=== PATIENT | male | born 1965 | race Caucasian/White ===

== ENCOUNTER 2024-08-27 15:43 | Observation (INO) ==
[2024-08-27 16:05] LABS: Hematocrit (blood only) 40.2 % (42.0-52.0); Hemoglobin 14.1 g/dl (14.0-18.0); Immature Granulocytes # (auto) 0.03 K/uL (0.01-0.20); Immature Granulocytes % (auto) 0.5 %; Mean Corpuscular Hemoglobin 32.2 pg (25.0-34.0); Mean Corpuscular Volume 91.8 fL (80.0-100.0); Platelet Count 221 K/uL (130-400); RDW Standard Deviation 42.3 fL (36.4-46.3); Red Blood Count 4.38 M/uL (4.70-6.10); White Blood Count 6.46 K/ul (4.8-10.8)
[2024-08-27 16:21] LABS: Alanine Aminotransferase 61.0 U/L (7-52); Albumin Globulin Ratio 1.6 (0.9-2); Alkaline Phosphatase 70.0 U/L (34-104); Anion Gap 6.0 (3-11); Bilirubin,Total 0.5 mg/dl (0.2-1.0); Blood Urea Nitrogen 17.0 mg/dl (6-23); Calcium 8.8 mg/dl (8.6-10.3); Carbon Dioxide 27.0 mmol/L (21-32); Chloride 107.0 mmol/L (98-107); Creatinine Clr Calc Pharmacy 93.8 ml/min; Globulin 2.7 gm/dl (2.5-4.0); Glucose 110.0 mg/dl (70-99(Fasting)); Potassium 3.8 mmol/L (3.5-5.1); Sodium 140.0 mmol/L (136-145); Total Protein 7.0 gm/dl (6.0-8.3)
[2024-08-27 16:34] LABS: INR 1.0 (0.9-1.1); Partial Thromboplastin Time 27 Seconds (21-31); Prothrombin Time 11.3 Seconds (9.0-12.0)
--- NOTE | 2024-08-27 17:18 | XRay Report ---
Clinical History: Chest pain Technique: Air frontal view of the chest was obtained Findings: No focal area of consolidation is seen. The heart size is within normal limits. No pleural effusion or pneumothorax is seen. There is suspected mild pulmonary edema No fracture is noted. No foreign body is seen Impression: Suspected mild pulmonary edema ACT 112: Positive. There are findings on this exam that require communication between the performing entity and the patient following Patient Test Result Information Act ([place] ACT 112) guidelines. Electronically signed by Zachary Engel 08-27-2024 5:18 PM
--- NOTE | 2024-08-27 18:39 | Emergency Department Note ---
Impression & Plan Precordial chest pain, Unstable angina, History of coronary artery disease ED Provider Note NAME: EUGENIO RAND AGE: 59 SEX: M : 1965 ARRIVES VIA: Walk-In INFORMANT: [Patient][] ED PROVIDER(S): [Jarad Parr MD] CHIEF COMPLAINT: Chest pain HISTORY OF PRESENT ILLNESS: The patient is a 59-year-old male who has known coronary disease. 2 years ago, he was diagnosed and, they are monitoring the situation. He also has a thoracic aneurysm and a valve issue that they are monitoring. The patient states that in the last month, he has noticed a burning sensation in his chest with exercise like shoveling. He does feel short of breath with it. If he rests, the pain resolves. The number of episodes have been increasing. No sweating with the symptoms. The patient spoke with his doctors office, he was referred to the ER. The patient already is on aspirin, cholesterol medication, beta-blockers and long-acting nitrates. PMHx/PSHx/Social Hx: See Below PHYSICAL EXAM: GENERAL: Patient is in no acute distress. HEENT: No acute trauma, normocephalic atraumatic, mucous membranes moist, no nasal congestion. NECK: No stridor, no adenopathy, no meningismus, trachea is midline. LUNGS: Clear to auscultation bilaterally, no wheeze, no rhonchi, breath sounds equal. HEART: 2/6 systolic murmur, regular rate and rhythm. ABDOMEN: Soft, nontender, no peritonitis. EXTREMITIES: No cyanosis, full range of motion of all the joints without pain or difficulty. NEUROLOGIC: Oriented x 3, no acute motor or sensory deficits, no focal weakness. SKIN: No jaundice, no diaphoresis. DIFFERENTIAL DIAGNOSIS: Angina, unstable angina, WI, reflux, among others. EMERGENCY DEPARTMENT PROCEDURES: MEDICAL DECISION MAKING: There is no leukocytosis or concerning anemia. There is a normal platelet count. No coagulopathy. No renal failure or significant electrolyte abnormality. There is some subtle liver enzyme elevation, although, the bilirubin is normal. The patient appears to be in euthyroid state. ECG shows a sinus rhythm, no obvious ST elevation. Cardiac enzyme testing x 1 is not consistent with acute cardiac injury. Chest x-ray does not show mediastinal widening, pneumonia or pneumothorax. On exam, patient was without complaints, he was resting comfortably. I discussed the patient's case with cardiology. Given the escalation of exertional symptoms in the last month, given his history of known coronary artery disease, admission was warranted. He likely has unstable angina. He may require coronary intervention. I did speak with the patient, he did consent to a hospital stay. I spoke with case management, the on-call hospitalist was consulted. Prior/Outside records/notes reviewed: None ECG per my interpretation: Indication was chest pain. The ECG shows a normal sinus rhythm with a rate of 70. 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 There is poor R wave progression. There is no acute ST elevation, no PVCs. The QTc is 408. Continuous Cardiac Monitoring per my interpretation: An order was placed for continuous cardiac monitoring. The monitor shows a rate of 71 with normal sinus rhythm. Imaging/x-ray results per my interpretation: Chest x-ray shows a poor inspiratory effort. There is no pneumonia. No cardiomegaly. Chronic Medical/Social conditions affecting care: Known coronary artery disease. Care/Management discussed with: Cardiology-Dr. Gutierres Level of care consideration(s): After review of the information above and other included data: --I believe the patient requires escalation of care to admission DISPOSITION: Admission Past Med/Surg History Problem List (Updated 08/28/24 @ 02:16 by Jarad Parr MD) History of coronary artery disease (Acute) Unstable angina (Acute) Precordial chest pain (Acute) Medical History CAD (coronary atherosclerotic disease) Social History Smoking Status: Former smoker Tobacco Type: Smokeless Tobacco (Dip or Chew) Do You Dip or Chew Tobacco: Yes; Hx Alcohol Use: Yes Alcohol type: beer Hx Substance Use: No Preferred Language: Tongan Waitstaff Required: No Beliefs That Will Affect Care: None Current Living Situation: Spouse Feels Safe at Home: Yes Assistive Devices: None Allergies Allergies Allergy/AdvReac Type Severity Reaction Status Date / Time No Known Allergies Allergy Mild Unverified 08/27/24 19:27 Home Meds Home Medications Medication Instructions Recorded Confirmed ascorbic acid (vitamin C) 1,000 mg 1,000 mg PO BID 08/27/24 08/27/24 tablet (Vitamin C) aspirin 81 mg tablet,delayed 81 mg PO DAILY 08/27/24 08/27/24 release atorvastatin 80 mg tablet 80 mg PO HS 08/27/24 08/27/24 cholecalciferol (vitamin D3) 125 125 mcg PO DAILY 08/27/24 08/27/24 mcg (5,000 unit) tablet (Vitamin D3) fenofibrate nanocrystallized 145 145 mg PO DAILY 08/27/24 08/27/24 mg tablet isosorbide mononitrate 30 mg 30 mg PO DAILY 08/27/24 08/27/24 tablet,extended release 24 hr metoprolol succinate 25 mg 12.5 mg PO HS 08/27/24 08/27/24 tablet,extended release 24 hr omega 7-orr-xmw-fish oil 1,000 mg 1 cap PO BID 08/27/24 08/27/24 (120 mg-180 mg) capsule (Fish Oil) tamsulosin 0.4 mg capsule 0.4 mg PO DAILY 08/27/24 08/27/24 vitamin B complex 1 tab PO DAILY 08/27/24 08/27/24 Results & Data (ED) Vital Signs Vital Signs - 24 hr 08/27/24 15:44 08/27/24 18:47 08/27/24 18:47 Temperature 36.6 C Temperature Source Temporal Artery Scan Pulse Rate 71 Pulse Rate [Apical] 59 L Pulse Rate from SpO2 Sensor Respiratory Rate 18 22 Respiratory Effort / Characteristics Non-Labored Spontaneous Respiratory Depth Normal Blood Pressure 141/81 H Blood Pressure [Right Arm] 134/89 Blood Pressure Mean 101 Blood Pressure Mean [Right Arm] 104 Pulse Oximetry 99 96 96 Oxygen Delivery Method Room Air Room Air Sepsis Recent Fever Within 48 Hours No Sepsis New/Unexplained Change in Mental Status N/A Sepsis Action Taken by Nursing No Action Required 08/27/24 19:13 08/27/24 19:30 Temperature Temperature Source Pulse Rate 58 L 59 L Pulse Rate [Apical] Pulse Rate from SpO2 Sensor 58 L Respiratory Rate 22 24 Respiratory Effort / Characteristics Respiratory Depth Blood Pressure 151/101 H 146/98 H Blood Pressure [Right Arm] Blood Pressure Mean 114 114 Blood Pressure Mean [Right Arm] Pulse Oximetry 97 97 Oxygen Delivery Method Sepsis Recent Fever Within 48 Hours Sepsis New/Unexplained Change in Mental Status Sepsis Action Taken by Correction Medications Current Medication List: was personally reviewed by me Laboratory Data Attestation: I reviewed the patient's lab results. 08/27/24 15:53 08/27/24 15:53 Lab Results 08/27/24 Range/Units 15:53 WBC 6.46 (4.8-10.8) K/ul RBC 4.38 L (4.70-6.10) M/uL Hgb 14.1 (14.0-18.0) g/dl Hct 40.2 L (42.0-52.0) % MCV 91.8 (80.0-100.0) fL MCH 32.2 (25.0-34.0) pg MCHC 35.1 (32.0-36.0) g/dL RDW Std Deviation 42.3 (36.4-46.3) fL RDW Coeff of Osiel 12.6 (11.5-14.5) % Plt Count 221 (130-400) K/uL MPV 9.4 (9.4-12.4) fL Immature Gran % (Auto) 0.5 % Neut % (Auto) 45.4 % Lymph % (Auto) 40.9 % Bennett % (Auto) 10.2 % Eos % (Auto) 2.2 % Baso % (Auto) 0.8 % Neut # (Auto) 2.94 (1.40-6.50) K/uL Lymph # (Auto) 2.64 (1.20-3.40) K/uL Bennett # (Auto) 0.66 H (0.11-0.59) K/uL Eos # (Auto) 0.14 (0.00-0.50) K/uL Baso # (Auto) 0.05 (0.00-0.20) K/uL Immature Gran # (Auto) 0.03 (0.01-0.20) K/uL PT 11.3 (9.0-12.0) Seconds INR 1.0 (0.9-1.1) APTT 27 (21-31) Seconds PTT Ratio 1.0 Sodium 140 (136-145) mmol/L Potassium 3.8 (3.5-5.1) mmol/L Chloride 107 (98-107) mmol/L Carbon Dioxide 27 (21-32) mmol/L Anion Gap 6 (3-11) BUN 17 (6-23) mg/dl Creatinine 1.00 (0.6-1.4) mg/dl Est Cr Clr Drug Dosing 93.8 ml/min eGFR 87.78 BUN/Creatinine Ratio 17.0 (10-20) Glucose 110 H (70-99(Fasting)) mg/dl Calcium 8.8 (8.6-10.3) mg/dl Total Bilirubin 0.5 (0.2-1.0) mg/dl AST 50 H (13-39) U/L ALT 61 H (7-52) U/L Alkaline Phosphatase 70 (34-104) U/L Troponin I High Sens 4.5 (0-20) pg/ml Total Protein 7.0 (6.0-8.3) gm/dl Albumin 4.3 (3.4-5.0) gm/dl Globulin 2.7 (2.5-4.0) gm/dl Albumin/Globulin Ratio 1.6 (0.9-2) Administered Medications Atorvastatin Calcium (Atorvastatin 40 Mg Tab) 80 mg PO HS DO Stop: 09/26/24 20:59 Last Admin: 08/27/24 21:13 Dose: 80 mg Documented By: VALENTIN Heparin Sodium/Dextrose (Heparin 17802 Unit/500 Ml D5w) 25,000 units in 500 mls @ 29 mls/hr IV .[id number] DO; Protocol Stop: 09/26/24 20:44 Last Admin: 08/27/24 21:14 Dose: 1,450 units/hr, 29 mls/hr Documented By: VALENTIN Co-signed By: MONICA Metoprolol Succinate (Metoprolol Succ 25mg Ext Rel Tab) 12.5 mg PO HS DO Stop: 09/26/24 20:59 Last Admin: 08/27/24 22:20 Dose: 12.5 mg Documented By: VALENTIN Discontinued Medications Furosemide (Furosemide Inj 20 Mg/2 Ml Vial) 20 mg IV ONE ONE Stop: 08/27/24 19:44 Last Admin: 08/27/24 20:12 Dose: 20 mg Documented By: VALENTIN Heparin Sodium/Dextrose (Heparin Iv Adult Wt-Based Standard *No* Initial Bolus Protocol) 1 each IV ONE STA; Protocol Stop: 08/27/24 20:22 Last Admin: 08/27/24 20:42 Dose: 1 each Documented By: VALENTIN Imaging Data Radiologist's Impression: Chest X-Ray 08/27/24 15:49 Clinical History: Chest pain Technique: Air frontal view of the chest was obtained Findings: No focal area of consolidation is seen. The heart size is within normal limits. No pleural effusion or pneumothorax is seen. There is suspected mild pulmonary edema No fracture is noted. No foreign body is seen Impression: Suspected mild pulmonary edema ACT 112: Positive. There are findings on this exam that require communication between the performing entity and the patient following Patient Test Result Information Act ([place] ACT 112) guidelines. Electronically signed by Zachary Engel 08-27-2024 5:18 PM Discharge Plan Visit Data Chief Complaint: Referred by Doctor Stated Complaint: HEART BURN, LEFT ARM NUMBNESS, DOC REF ED Provider: Jarad Parr Discharge Problem: Precordial chest pain, Unstable angina, History of coronary artery disease Patient Disposition: Admitted As Inpatient Condition: Fair Discharge Instructions Interventions: ED Discharge Assessment Last Done: 08/27/24 22:17
--- NOTE | 2024-08-27 19:44 | History & Physical Report ---
Date of Service August 27, 2024 Assessment & Plan (1) CHF (congestive heart failure): Plan: Assessment and plan below following discussion of case with ED provider and reviewing patient history/pertinent normal/abnormal diagnostic test results. Acute CHF Unstable angina, history nonocclusive CAD hypertension, stable hyperlipidemia, on statin Rx NAFLD prediabetes, patient cannot recall recent hemoglobin A1c BPH, stable on Flomax Admit to PCU Lasix 1 dose Strict I/Os, daily weights, CHF education TTE, Cardiology consult re: CHF, chest pain, history of CAD (ED provider already in touch with Dr. Gutierres who recommends starting IV heparin for possible unstable angina.) Continue aspirin, beta-matthew and statin Rx for CAD Follow troponin N.p.o. after midnight in anticipation of ischemic workup Check lipid profile and hemoglobin A1c DVT prophylaxis. Heparin Full code Patient requesting update providers. Ms. Michaela Youssef, contact #[phone]. Text document was generated using [employer] voice recognition software. It may contain grammatical or spelling errors. Kindly contact undersigned for clarification of any documentation item in question. History of Present Illness Chief Complaint: Chest pain, SOB Primary Care Provider: PCP : [facility] Super[facility] F[place] Bucking : Greg Phipps DO History obtained from patient, family, and records. Medical history significant for CAD, hypertension, hyperlipidemia, NAFLD, prediabetes, BPH. Patient for a few weeks now will experience intermittent chest discomfort described as burning with occasional radiation to the left arm. Some SOB with exertion. Denies cough symptoms. Denies fluid retention Different from chest pain/fatigue symptoms which prompted outpatient diagnostic cardiac catheterization at a hospital in [place] in 2021 which showed nonobstructive CAD as per patient. Patient compliant with home medications. No unusual stress. Patient consulted ER for worsening symptoms. Patient currently comfortable. Medical History as above Surgical History : Hernia repair, septoplasty, carpal tunnel surgery Family History : Heart disease Personal/Social history : Non-smoker, occasional EtOH intake, pavement work employment Allergies Allergy/AdvReac Type Severity Reaction Status Date / Time No Known Allergies Allergy Mild Unverified 08/27/24 19:27 Home Medications Medication Instructions Recorded Confirmed Type ascorbic acid (vitamin C) 1,000 mg 1,000 mg PO BID 08/27/24 08/27/24 History tablet (Vitamin C) aspirin 81 mg tablet,delayed 81 mg PO DAILY 08/27/24 08/27/24 History release atorvastatin 80 mg tablet 80 mg PO HS 08/27/24 08/27/24 History cholecalciferol (vitamin D3) 125 125 mcg PO DAILY 08/27/24 08/27/24 History mcg (5,000 unit) tablet (Vitamin D3) fenofibrate nanocrystallized 145 145 mg PO DAILY 08/27/24 08/27/24 History mg tablet isosorbide mononitrate 30 mg 30 mg PO DAILY 08/27/24 08/27/24 History tablet,extended release 24 hr metoprolol succinate 25 mg 12.5 mg PO HS 08/27/24 08/27/24 History tablet,extended release 24 hr omega 0-csp-vjy-fish oil 1,000 mg 1 cap PO BID 08/27/24 08/27/24 History (120 mg-180 mg) capsule (Fish Oil) tamsulosin 0.4 mg capsule 0.4 mg PO DAILY 08/27/24 08/27/24 History vitamin B complex 1 tab PO DAILY 08/27/24 08/27/24 History Past Med/Surg History Problem List (Updated 08/28/24 @ 03:28 by Drew Whitfield MD) CHF (congestive heart failure) History of coronary artery disease (Acute) Unstable angina (Acute) Precordial chest pain (Acute) Medical History CAD (coronary atherosclerotic disease) Social History Smoking Status: Former smoker Tobacco Type: Smokeless Tobacco (Dip or Chew) Do You Dip or Chew Tobacco: Yes; Hx Alcohol Use: Yes Alcohol type: beer Hx Substance Use: No Preferred Language: Latvian 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 Beliefs That Will Affect Care: None Current Living Situation: Spouse Feels Safe at Home: Yes Assistive Devices: None Review of Systems Review of Systems: As per HPI, all other systems reviewed and negative Physical Exam Physical Exam: GENERAL: Comfortable, obese, slightly anxious, no respiratory distress SKIN: Normal color, warm HEENT: [place] palpebral conjunctivae, no ptosis, moist buccal mucosa NECK : Supple, no tenderness CHEST : CTA, no tenderness HEART : Bradycardic, systolic murmur ABDOMEN: Some distention, nontender EXTREMITIES : No LE swelling/tenderness, palpable pulses, no other conspicuous deformities noted NEUROLOGIC : Coherent, no facial asymmetry, no other gross focality Results & Data Results & Data Vital Signs (Past 12 Hours) Vital Signs Temp Pulse Pulse Resp BP BP Pulse Ox 08/27/24 18:47 96 08/27/24 18:47 59 L 22 134/89 96 08/27/24 15:44 36.6 C 71 18 141/81 H 99 O2 Del Method 08/27/24 18:47 Room Air 08/27/24 18:47 Room Air 08/27/24 15:44 Laboratory Results Laboratory Results WBC 6.46 K/ul (4.8-10.8) 08/27/24 15:53 RBC 4.38 M/uL (4.70-6.10) L 08/27/24 15:53 Hgb 14.1 g/dl (14.0-18.0) 08/27/24 15:53 Hct 40.2 % (42.0-52.0) L 08/27/24 15:53 MCV 91.8 fL (80.0-100.0) 08/27/24 15:53 MCH 32.2 pg (25.0-34.0) 08/27/24 15:53 MCHC 35.1 g/dL (32.0-36.0) 08/27/24 15:53 RDW Std Deviation 42.3 fL (36.4-46.3) 08/27/24 15:53 RDW Coeff of Osiel 12.6 % (11.5-14.5) 08/27/24 15:53 Plt Count 221 K/uL (130-400) 08/27/24 15:53 MPV 9.4 fL (9.4-12.4) 08/27/24 15:53 Immature Gran % (Auto) 0.5 % 08/27/24 15:53 Neut % (Auto) 45.4 % 08/27/24 15:53 Lymph % (Auto) 40.9 % 08/27/24 15:53 Craig % (Auto) 10.2 % 08/27/24 15:53 Eos % (Auto) 2.2 % 08/27/24 15:53 Baso % (Auto) 0.8 % 08/27/24 15:53 Neut # (Auto) 2.94 K/uL (1.40-6.50) 08/27/24 15:53 Lymph # (Auto) 2.64 K/uL (1.20-3.40) 08/27/24 15:53 Craig # (Auto) 0.66 K/uL (0.11-0.59) H 08/27/24 15:53 Eos # (Auto) 0.14 K/uL (0.00-0.50) 08/27/24 15:53 Baso # (Auto) 0.05 K/uL (0.00-0.20) 08/27/24 15:53 Immature Gran # (Auto) 0.03 K/uL (0.01-0.20) 08/27/24 15:53 PT 11.3 Seconds (9.0-12.0) 08/27/24 15:53 INR 1.0 (0.9-1.1) 08/27/24 15:53 APTT 27 Seconds (21-31) 08/27/24 15:53 PTT Ratio 1.0 08/27/24 15:53 Sodium 140 mmol/L (136-145) 08/27/24 15:53 Potassium 3.8 mmol/L (3.5-5.1) 08/27/24 15:53 Chloride 107 mmol/L (98-107) 08/27/24 15:53 Carbon Dioxide 27 mmol/L (21-32) 08/27/24 15:53 Anion Gap 6 (3-11) 08/27/24 15:53 BUN 17 mg/dl (6-23) 08/27/24 15:53 Creatinine 1.00 mg/dl (0.6-1.4) 08/27/24 15:53 Est Cr Clr Drug Dosing 93.8 ml/min 08/27/24 15:53 eGFR 87.78 08/27/24 15:53 BUN/Creatinine Ratio 17.0 (10-20) 08/27/24 15:53 Glucose 110 mg/dl (70-99(Fasting)) H 08/27/24 15:53 Calcium 8.8 mg/dl (8.6-10.3) 08/27/24 15:53 Total Bilirubin 0.5 mg/dl (0.2-1.0) 08/27/24 15:53 AST 50 U/L (13-39) H 08/27/24 15:53 ALT 61 U/L (7-52) H 08/27/24 15:53 Alkaline Phosphatase 70 U/L (34-104) 08/27/24 15:53 Troponin I High Sens 4.5 pg/ml (0-20) 08/27/24 15:53 Total Protein 7.0 gm/dl (6.0-8.3) 08/27/24 15:53 Albumin 4.3 gm/dl (3.4-5.0) 08/27/24 15:53 Globulin 2.7 gm/dl (2.5-4.0) 08/27/24 15:53 Albumin/Globulin Ratio 1.6 (0.9-2) 08/27/24 15:53 Impressions Chest X-Ray 08/27/24 15:49 Clinical History: Chest pain Technique: Air frontal view of the chest was obtained Findings: No focal area of consolidation is seen. The heart size is within normal limits. No pleural effusion or pneumothorax is seen. There is suspected mild pulmonary edema No fracture is noted. No foreign body is seen Impression: Suspected mild pulmonary edema ACT 112: Positive. There are findings on this exam that require communication between the performing entity and the patient following Patient Test Result Information Act ([place] ACT 112) guidelines. Electronically signed by Zachary Engel 08-27-2024 5:18 PM Diagnostic Findings EKG as per my interpretation :Rate 70, NSR, LAD, LAFB, septal infarct, no ischemia
[2024-08-27] MEDS: FUROSEMIDE INJ 20 MG/2 ML VIAL IV ONE (20:12)
[2024-08-27] MEDS ORDERED: ACETAMINOPHEN 500 MG TAB PO PRN (20:21)
[2024-08-27] MEDS ORDERED: NITROGLYCERIN SL 0.4 MG/TAB TAB SL PRN (20:21)
[2024-08-27] MEDS ORDERED: LORazepam 0.5 MG TAB PO PRN (20:21)
[2024-08-27] MEDS ORDERED: MoRPHine SULFATE 4 MG/ML 1 ML CARP\\VIAL IV PRN (20:21)
[2024-08-27] MEDS ORDERED: PROMETHAZINE 6.25 MG/50.25 ML BAG IV PRN (20:21)
[2024-08-27] MEDS: Heparin IV Adult Wt-Based Standard *NO* INITIAL Bolus Protocol IV STA (20:42)
[2024-08-27 20:45] LABS: Magnesium 1.8 mg/dl (1.7-2.4)
[2024-08-27 21:01] LABS: Thyroid Stimulating Hormone 2.913 uIu/ml (0.300-4.500)
[2024-08-27] MEDS: ATORVASTATIN 40 MG TAB PO SCH (21:13)
[2024-08-27] MEDS: HEPARIN 25000 UNIT/500 ML D5W 25,000 UNITS/500 ML BAG IV SCH (21:14)
[2024-08-27] MEDS: METOPROLOL SUCC 25MG EXT REL TAB PO SCH (22:20)
[2024-08-28 03:22] LABS: Hematocrit (blood only) 40.7 % (42.0-52.0); Hemoglobin 14.3 g/dl (14.0-18.0); Immature Granulocytes # (auto) 0.02 K/uL (0.01-0.20); Immature Granulocytes % (auto) 0.3 %; Mean Corpuscular Hemoglobin 32.2 pg (25.0-34.0); Mean Corpuscular Volume 91.7 fL (80.0-100.0); Platelet Count 233 K/uL (130-400); RDW Standard Deviation 41.7 fL (36.4-46.3); Red Blood Count 4.44 M/uL (4.70-6.10); White Blood Count 7.30 K/ul (4.8-10.8)
[2024-08-28 03:37] LABS: Anion Gap 8.0 (3-11); Blood Urea Nitrogen 18.0 mg/dl (6-23); Calcium 9.0 mg/dl (8.6-10.3); Carbon Dioxide 29.0 mmol/L (21-32); Chloride 104.0 mmol/L (98-107); Cholesterol 126.0 mg/dl (0-200); Creatinine Clr Calc Pharmacy 86.3 ml/min; Glucose 122.0 mg/dl (70-99(Fasting)); HDL Cholesterol 26.0 mg/dl; Potassium 3.5 mmol/L (3.5-5.1); Sodium 141.0 mmol/L (136-145); Triglycerides 292.0 mg/dl (0-150)
[2024-08-28 03:52] LABS: ANTI-Xa, UFH(UnfractionatedHep 0.43 IU/ml (0.3-0.7)
[2024-08-28] MEDS ORDERED: MoRPHine SULFATE 4 MG/ML 1 ML CARP\\VIAL IV PRN (08:18)
[2024-08-28 08:38] LABS: Hemoglobin A1C 6.3 % (4.5-5.6)
--- NOTE | 2024-08-28 09:12 | XCELERA ---
[id number]
--- NOTE | 2024-08-28 10:30 | Cardiology Consultation ---
Date of Consultation August 28, 2024 Assessment & Plan (1) Unstable angina: -History is very suggestive of coronary ischemia. -Agree with intravenous heparin. -Will proceed straight to a cardiac catheterization. (2) CAD (coronary atherosclerotic disease): -Known nonobstructive disease by cardiac catheterization in 2021. (3) Acute on chronic diastolic CHF (congestive heart failure): -Mild hypervolemia noted on presentation. -Responded to a single dose of intravenous furosemide. (4) Aortic stenosis: -Moderate in degree on current echocardiogram. -Will do aortic valve measurements at time of cardiac catheterization. (5) Ascending aorta dilatation: -Measures 4.1 cm in diameter on current study. -Yearly surveillance echocardiograms per Dr. Phipps. -According to the patient's , ascending aorta has remained stable. History of Present Illness Attending Physician: Aravind Ceballos MD History of Present Illness Mr. Youssef is a 59-year-old male admitted yesterday with a chest pain syndrome and mild hypervolemia. This consultation was ordered to assist in his cardiac management. Of note, the patient typically follows with Dr. Greg Phipps in [place]. The patient was in his usual state of health until 1 to 2 months ago. He began to note a substernal chest "burning" with physical activity that resolved with rest. There was associated shortness of breath and radiation to the left arm, b ut no nausea, vomiting, or diaphoresis. His symptoms were intermittent, however, over the last week his symptoms occur with any physical activity. The patient did have a cardiac catheterization performed in [facility] in 2021. This apparently showed nonobstructive coronary artery disease. The patient has known dilatation of the ascending thoracic aorta. He has been getting yearly surveillance echocardiograms through Dr. Phipps's office. The patient's chest x-ray on presentation noted mild CHF. He was given 1 dose of intravenous Lasix in the emergency room. His medication reviewed in detail. Past medical and surgical history 1. Nonobstructive coronary artery [id number] 2. Hypertension 3. Hypercholesterolemia 4. Dilated ascending thoracic aorta 5. Moderate aortic stenosisJuly 2024 6. Hyperglycemia 7. Nonalcoholic steatohepatitis 8. BPH 9. Vitamin D deficiency Social history and lives with his Works in construction Chews tobacco Occasional alcohol Family history Father at 83 from metastatic colon carcinoma Mother is 84 with Alzheimer's dementia 3 siblings are alive and well Review of systems A 10 point review of system was undertaken and negative except that described above. Allergies Allergy/AdvReac Type Severity Reaction Status Date / Time No Known Allergies Allergy Mild Unverified 08/27/24 19:27 Home Medications Medication Instructions Recorded Confirmed Type ascorbic acid (vitamin C) 1,000 mg 1,000 mg PO BID 08/27/24 08/27/24 History tablet (Vitamin C) aspirin 81 mg tablet,delayed 81 mg PO DAILY 08/27/24 08/27/24 History release atorvastatin 80 mg tablet 80 mg PO HS 08/27/24 08/27/24 History cholecalciferol (vitamin D3) 125 125 mcg PO DAILY 08/27/24 08/27/24 History mcg (5,000 unit) tablet (Vitamin D3) fenofibrate nanocrystallized 145 145 mg PO DAILY 08/27/24 08/27/24 History mg tablet isosorbide mononitrate 30 mg 30 mg PO DAILY 08/27/24 08/27/24 History tablet,extended release 24 hr metoprolol succinate 25 mg 12.5 mg PO HS 08/27/24 08/27/24 History tablet,extended release 24 hr omega 0-rha-idh-fish oil 1,000 mg 1 cap PO BID 08/27/24 08/27/24 History (120 mg-180 mg) capsule (Fish Oil) tamsulosin 0.4 mg capsule 0.4 mg PO DAILY 08/27/24 08/27/24 History vitamin B complex 1 tab PO DAILY 08/27/24 08/27/24 History Patient History Medical History CAD (coronary atherosclerotic disease) Social History Smoking Status: Former smoker Tobacco Type: Smokeless Tobacco (Dip or Chew) Do You Dip or Chew Tobacco: Yes; Hx Alcohol Use: Yes Alcohol type: beer Hx Substance Use: No Preferred Language: Vietnamese Communication Ability: Effective Teaching Supervisor Required: No Beliefs That Will Affect Care: None Current Living Situation: Spouse Feels Safe at Home: Yes Assistive Devices: None Physical Exam Physical Exam: In general this is a well-developed well-nourished white male in no acute distress. HEENT exam is negative. Neck reveals mildly delayed carotid upstrokes without bruits or transmitted murmurs. Jugular venous pressure is flat at 90. There is no thyromegaly. Cardiovascular exam reveals a regular rhythm with a 2/6 crescendo decrescendo systolic murmur heard loudest at the base. No heart sounds are audible at the apex. Lungs are clear without rales, rhonchi, or wheezes. Abdomen is soft without bruits. Extremities reveal intact radial artery and posterior tibial pulses bilaterally. There is no peripheral edema. Results & Data Vital Signs (Past 12 Hours) Vital Signs Temp Pulse Pulse Resp BP Pulse Ox Pulse Ox 08/28/24 07:58 56 L 08/28/24 07:15 36.4 C L 71 18 132/71 94 08/28/24 04:58 64 08/28/24 02:55 36.7 C 67 18 130/77 94 08/28/24 00:00 96 08/27/24 23:17 36.5 C 64 16 137/86 96 08/27/24 23:16 36.5 C 64 16 137/86 96 08/27/24 23:14 96 08/27/24 22:41 08/27/24 22:33 96 O2 Del Method O2 Del Method 08/28/24 07:58 08/28/24 07:15 Room Air 08/28/24 04:58 08/28/24 02:55 Room Air 08/28/24 00:00 Room Air 08/27/24 23:17 Room Air 08/27/24 23:16 Room Air 08/27/24 23:14 Room Air 08/27/24 22:41 Room Air 08/27/24 22:33 Room Air Laboratory Results CBC notes hemoglobin of 14.3, hematocrit 40.7, white count 7.3, and a platelet count of 233,000. Electrolytes noted sodium of 141, potassium 3.5, chloride 104, bicarb 29, BUN 18, creatinine 1.07, and a glucose of 122. Initial high- sensitivity troponin was 4.5 with follow-up values of 5.7 and 5.1. LDL cholesterol 42 with an HDL cholesterol of 26. TSH is normal at 2.9. Diagnostic Findings Echocardiogram notes normal left ventricular systolic function with ejection fraction of 60 to 65%. There is mild LVH along with moderate aortic stenosis. There is mild mitral regurgitation. The ascending thoracic aorta measures 4.1 cm in diameter. EKG notes sinus bradycardia and a first-degree AV block. Chest x-ray shows mild interstitial edema. PG Care Time/CCT Total # of Minutes Spent Total Time Spent with Patient: Total time spent is greater than 50% in coordination of care (as documented) at patient's floor/unit and/or counseling patient: Coding Level of Care Code 09390 IN/OBS CONSULT LVL 5,80M Diagnoses Unstable angina I20.0 CAD (coronary atherosclerotic disease) I25.10 Acute on chronic diastolic CHF (congestive heart failure) I50.33 Aortic stenosis I35.0 Ascending aorta dilatation I77.810
--- NOTE | 2024-08-28 10:45 | Pre Anesthesia Assessment ---
Date of Service August 28, 2024 Pre Sedation Assessment Vital Signs Temp Pulse Pulse Resp BP BP Pulse Ox 08/28/24 07:58 56 L 08/28/24 07:15 97.5 F L 71 18 132/71 94 08/28/24 04:58 64 08/28/24 02:55 98.1 F 67 18 130/77 94 08/28/24 00:00 08/27/24 23:17 97.7 F 64 16 137/86 96 08/27/24 23:16 97.7 F 64 16 137/86 96 08/27/24 23:14 96 08/27/24 22:41 08/27/24 22:33 08/27/24 22:00 77 26 H 138/89 08/27/24 21:00 59 L 22 126/89 95 08/27/24 20:48 62 18 129/76 98 08/27/24 19:30 59 L 24 146/98 H 97 08/27/24 19:13 58 L 22 151/101 H 97 08/27/24 18:47 96 08/27/24 18:47 59 L 22 134/89 96 08/27/24 15:44 97.9 F 71 18 141/81 H 99 Pulse Ox O2 Del Method O2 Del Method 08/28/24 07:58 08/28/24 07:15 Room Air 08/28/24 04:58 08/28/24 02:55 Room Air 08/28/24 00:00 96 Room Air 08/27/24 23:17 Room Air 08/27/24 23:16 Room Air 08/27/24 23:14 Room Air 08/27/24 22:41 Room Air 08/27/24 22:33 96 Room Air 08/27/24 22:00 08/27/24 21:00 08/27/24 20:48 08/27/24 19:30 08/27/24 19:13 08/27/24 18:47 Room Air 08/27/24 18:47 Room Air 08/27/24 15:44 Cardiovascular + regular rate Respiratory + respiratory effort normal Pre-Sedation Airway Assessment Smoking Status: Former smoker Hx Sleep Apnea: No Hx Difficult Intubation: No Short, Thick Neck: No Thyromental Distance: > or= 3.5 Finger Breadths Oral Cavity: + Dental Abnormalities Mallampati Class: III ASA: ASA3 Procedure Planning Contraindications for Sedation: none Current Medications Reviewed: Yes Notes The planned sedation has been discussed with the patient. Informed Consent was obtained. I have identified the patient, determined the appropriateness of sedation and have assessed the patient immediately prior to the procedure. All medicine(s) and interventions are by my order.
--- NOTE | 2024-08-28 11:23 | Electrocardiogram Report ---
Test Reason : Blood Pressure : */* mmHG Vent. Rate : 70 BPM Atrial Rate : 70 BPM P-R Int : 208 ms QRS Dur : 94 ms QT Int : 378 ms P-R-T Axes : 30 -25 36 degrees QTcB Int : 408 ms Normal sinus rhythm Inferior infarct , age undetermined Poor R wave progression, consider anterior [place] vs. lead placement vs. LVH Abnormal ECG No previous ECGs available Confirmed by Vern Murphy ([id number]) on 08/28/2024 11:22:51 AM Referred By: Confirmed By: Vern Murphy
--- NOTE | 2024-08-28 11:47 | Electrocardiogram Report ---
Test Reason : Blood Pressure : */* mmHG Vent. Rate : 53 BPM Atrial Rate : 53 BPM P-R Int : 214 ms QRS Dur : 96 ms QT Int : 426 ms P-R-T Axes : 32 -25 32 degrees QTcB Int : 399 ms Sinus bradycardia with sinus arrhythmia with 1st degree A-V block Otherwise normal ECG When compared with ECG of 27-Aug-2024 15:51, (unconfirmed) Borderline criteria for Anterior infarct are no longer Present No significant change was found Confirmed by Vern Murphy ([id number]) on 08/28/2024 11:46:40 AM Referred By: Greg Phipps Confirmed By: Vern Murphy
[2024-08-28] MEDS: MIDAZOLAM HCL 1 MG/ML 2ML VIAL ONE ×2 (13:15→13:17)
[2024-08-28] MEDS: HEPARIN (PORCINE) 1000 UNIT/ML 10 ML (CATH LAB USE ONLY) ONE ×2 (13:16→13:17)
[2024-08-28] MEDS: niCARdipine 2,000 MCG/20 ML SYR ONE (13:16)
[2024-08-28] MEDS: NITROGLYCERIN/D5W 100MCG/ML 20ML SYR ONE (13:17)
[2024-08-28] MEDS: CLOPIDOGREL BISULFATE 300 MG TAB ONE (13:17)
[2024-08-28] MEDS: OPTIRAY 350 ONE (13:29)
--- NOTE | 2024-08-28 13:34 | Post Anesthesia Assessment ---
Date of Service August 28, 2024 Post Sedation Assessment Vital Signs Temp Pulse Pulse Resp BP BP Pulse Ox 08/28/24 10:43 52 L 14 148/89 H 96 08/28/24 10:00 97.9 F 53 L 18 131/79 95 08/28/24 07:58 56 L 08/28/24 07:15 97.5 F L 71 18 132/71 94 08/28/24 04:58 64 08/28/24 02:55 98.1 F 67 18 130/77 94 08/28/24 00:00 08/27/24 23:17 97.7 F 64 16 137/86 96 08/27/24 23:16 97.7 F 64 16 137/86 96 08/27/24 23:14 96 08/27/24 22:41 08/27/24 22:33 08/27/24 22:00 77 26 H 138/89 08/27/24 21:00 59 L 22 126/89 95 08/27/24 20:48 62 18 129/76 98 08/27/24 19:30 59 L 24 146/98 H 97 08/27/24 19:13 58 L 22 151/101 H 97 08/27/24 18:47 96 08/27/24 18:47 59 L 22 134/89 96 08/27/24 15:44 97.9 F 71 18 141/81 H 99 Pulse Ox O2 Del Method O2 Del Method 08/28/24 10:43 Room Air 08/28/24 10:00 Room Air 08/28/24 07:58 08/28/24 07:15 Room Air 08/28/24 04:58 08/28/24 02:55 Room Air 08/28/24 00:00 96 Room Air 08/27/24 23:17 Room Air 08/27/24 23:16 Room Air 08/27/24 23:14 Room Air 08/27/24 22:41 Room Air 08/27/24 22:33 96 Room Air 08/27/24 22:00 08/27/24 21:00 08/27/24 20:48 08/27/24 19:30 08/27/24 19:13 08/27/24 18:47 Room Air 08/27/24 18:47 Room Air 08/27/24 15:44 Recovery Score Activity: Moves 4 extremities Respiration: Deep Breath/Cough Circulation: +/-20% PreAnes Value Consciousness: Fully Awake Oxygen Saturation: O2 needed for >90% Discharge Sedation Level of Care: Fast Track Phase II Post Sedation Plan tiss
--- NOTE | 2024-08-28 13:35 | Post Operative Brief Note ---
Cardiology Brief Post Op Date of Surgery August 28, 2024 Pre & Post Diagnosis Coronary artery disease Moderate aortic stenosis Procedure Coronary angiography PCI of mid LAD with single drug-eluting stent (3.5 x 15 mm Misbah; postdilated with 4.5 NC). Residency Coordinator Harshad Sorensen MD Assistant County Attorney [place] Estimated Blood Loss 25 Findings See Below 70% mid LAD. Small D3 80% ostial Anesthesia Type RN Sedation Complications none Disposition Accompanied Patient To Recovery: Yes Disposition: PCU
--- NOTE | 2024-08-28 14:32 | Hospitalist Progress Note ---
Date of Service August 28, 2024 Assessment & Plan (1) CHF (congestive heart failure): Plan: Assessment and plan below following discussion of case with ED provider and reviewing patient history/pertinent normal/abnormal diagnostic test results. Unstable angina, history nonocclusive CAD CAD s/p LAD YADIRA -s/p cath which revealed 70% mid LAD. Small D3 80% ostial -LAD stent placed Plan: -post stent placement monitoring for 24 hours on telementry -Strict I/Os, daily weights, CHF education -f/u echo results -likely will need antianginal meds for ostial lesion -Continue aspirin, beta-matthew and statin Rx for CAD prediabetes, patient cannot recall recent hemoglobin A1c BPH, stable on Flomax hypertension, stable hyperlipidemia, on statin Rx NAFLD I spent a total of 25 minutes in direct patient care, including aqqu-re-jqni time with the patient and/or family, reviewing medical records, ordering and reviewing diagnostic tests, and coordinating care with other healthcare providers. This time includes: history taking, physical examination, medical decision making, counseling, ECG interpretation, imaging interpretation, lab interpretation, orders, and education, excluding time spent in the performance of separately billed services. Admission and Anticipated Discharge Date Admission Date: August 27, 2024 Subjective Patient in specialist employee labor relations throughout day, unable to be seen. Talked to who was appreciative of care. Review of Systems Review of Systems: -not seen in specialist employee labor relations Physical Exam Physical Exam: -not seen in specialist employee labor relations Results & Data Results & Data Vital Signs (Past 12 Hours) Vital Signs Temp Pulse Pulse Resp BP BP Pulse Ox 08/28/24 14:14 54 L 14 145/83 H 98 08/28/24 13:55 64 18 136/86 98 08/28/24 13:40 59 L 18 134/79 98 08/28/24 10:43 52 L 14 148/89 H 96 08/28/24 10:00 36.6 C 53 L 18 131/79 95 08/28/24 07:58 56 L 08/28/24 07:15 36.4 C L 71 18 132/71 94 08/28/24 04:58 64 08/28/24 02:55 36.7 C 67 18 130/77 94 O2 Del Method 08/28/24 14:14 Room Air 08/28/24 13:55 Room Air 08/28/24 13:40 Room Air 08/28/24 10:43 Room Air 08/28/24 10:00 Room Air 08/28/24 07:58 08/28/24 07:15 Room Air 08/28/24 04:58 08/28/24 02:55 Room Air Laboratory Results -personally reviewed, no leukocytosis, Hgb at baseline, elevated transaminases with hx of COLLIER, significantly elevated tricglycerides Medications Administered Atorvastatin Calcium (Atorvastatin 40 Mg Tab) 80 mg PO [facility] Stop: 09/26/24 20:59 Last Admin: 08/27/24 21:13 Dose: 80 mg Documented By: VALENTIN Metoprolol Succinate (Metoprolol Succ 25mg Ext Rel Tab) 12.5 mg PO DO Stop: 09/26/24 20:59 Last Admin: 08/27/24 22:20 Dose: 12.5 mg Documented By: VALENTIN
--- NOTE | 2024-08-28 15:00 | Cardiac Catheterization ---
[facility] Data: Supervisor Boiler Repair Cardiac Status Clinical evaluation leading to the procedure CAD Presenation: Unstable angina Diagnostic Physicians Name: Harshad Sorenesn MD Closure Device Recommendations: PCI without planned CABG Cardiac Cath Procedure Full Procedure Date August 28, 2024 Pre-Procedure Diagnosis Pre-Procedure Diagnosis: Angina and CAD AUC Score AUC Score: 7 Post-Procedure Diagnosis Post-Procedure Diagnosis: Severe CAD, Successful PCI and Normal Intracardiac Pressures Procedure(s) Performed Procedure(s) Performed: Coronary Angiography, Left Heart Cath, Drug Eluting Stent, Ultrasound Guided Vascular Access, IVUS and Fractional Flow [place] [employer] Gardening Teacher Harshad Sorensen MD Stoneworking Sander(s) [place] Estimated Blood Loss Estimated Blood Loss: 20 Medication(s) Medication(s): Clopidogrel, Fentanyl, Heparin, Lidocaine 1%, Nicardipine, Nitroglycerin and Versed Summary of Findings Indication: Unstable angina Access: 6 Fr slender right radial artery under ultrasound guidance Catheters: Holland, JL 3.5, JR4, EBU 3.5 guide Findings: LM -normal caliber, 20% distal stenosis LAD -large caliber, 60 to 70% mid stenosis just after takeoff of D1. 40% latemid stenosis. Distal vessel without significant disease and wraps around apex. 90% ostial small D2. Circumflex -medium caliber, AV groove circumflex without significant disease. Large high OM1 with 30% proximal stenosis. Small bifurcating OM 2 without significant disease. RCA -dominant, large caliber, 20-30% late proximal to mid disease, mid/distal luminal irregularities. RPDA, distal PLB without significant disease. Aortic valve crossed with JR4 catheter and straight wire. Simultaneous AO/LV pressures obtained through Alejandro catheter. Peak to peak gradient 25 mmHg. Mean gradient 31 mmHg. LVEDP -21 -- PCI -- Antithrombotic therapy: Heparin, clopidogrel Procedure: Left main cannulated with EBU 3.5 guide Pre-procedure flow SUSAN 3 Steele Omni wire normalized and placed across stenosis into distal vessel iFR 0.91 Omni wire removed and scion blue wire navigated into distal LAD. Sink Maker 50 wire navigated into D1 Steele IVUS catheter placed to mid LAD. Pullback revealed mild to moderate latemid eccentric atherosclerotic disease. Calcified focal stenosis between takeoff of D1 and D2. Minimal proximal LAD and left main disease. Mid LAD stenosis by IVUS 70-75%, MLA 3.9 mm Decision to proceed with PCI Mid LAD lesion predilated with 3.0 compliant balloon Dilated lesion stented with 3.5 x 15 mm Roberts drug-eluting stent extending across takeoff of D1 Stent post-dilated with 4.0 noncompliant balloon IC vasodilators administered for spasm Repeat IVUS showed underexpansion in the mid segment and possibly unopposed stent struts at proximal edge Stent further dilated with 4.5 NC balloon Post procedure SUSAN 3 flow, stent well expanded with minimal residual stenosis and no apparent cardiac complications. Arterial Closure: TR band Summary: 1. Severe single vessel coronary artery disease -70 to 75% mid LAD by IVUS 90% ostial small D2 2. Elevated LVEDP (21 mmHg). 3. Moderate aortic stenosis (mean gradient 31 mmHg). 4. Successful PCI of proximal to mid LAD with single drug-eluting stent (3.5 x 15 mm Misbah; postdilated with 4.5 NC). Recommendations: To PCU for continued monitoring Loaded with clopidogrel 600 mg in Supervisor Boiler Repair Continue dual-antiplatelet therapy for at least 6 months Continue statin, and ASCVD risk factor modification Second diagonal is too small of a vessel for stenting. Recommend continued antianginal therapy. Hemodynamics Rest Ao:: 108/77/92 Final Ao: 145/81/107 LV: 150/27 Recommendations Recommendations: PCI without planned CABG Radiation Exposure (mGy) 3284 Contrast (mls) 180 Anesthesia Moderate 2726-3543 Procedural Complication(s) None Disposition Supervisor Boiler Repair Holding/Recovery I attest to the content of the Intraoperative Record and any orders documented therein. Any exceptions are noted below. [facility] Card Cath Procedure Codes Cardiac Catheterization Procedure 1: Cardiovascular Cath Procedures: 80874 Left Heart Cath (+/-LV) Procedure 2: Cardiovascular Cath Procedures: 76493 (Doppler) Pressure Wire Therapeutic Services & Ancillary Procedure 1: Cardiovascular Tx and Anc Procedures: 89348 IV Ultrasound (Coronary or Graft) Procedure 2: Cardiovascular Tx and Anc Procedures: 91165 Ultrasonic Guidance Vascular Access Moderate Sedation Procedure 1: Sedation/Anesthesia: 78435 Mod Sedation by the same physician;Init15 Min Child Age 5 & Up Procedure 2: Sedation/Anesthesia: 67194 Mod Sedation by the same physician; Ea [id number] Minutes Stenting Procedure 1: Cardiovascular Stent Procedures: 45120 Perc transcatheter placement of intracoronary stent(s), with ang PG Care Time/CCT Total # of Minutes Spent Total Time Spent with Patient: Total time spent is greater than 50% in coordination of care (as documented) at patient's floor/unit and/or counseling patient:
[2024-08-28] MEDS: TAMSULOSIN HCL 0.4 MG CAP PO SCH ×2 (15:09→20:21)
[2024-08-28] MEDS: ASPIRIN 81 MG ECTAB PO SCH (15:11)
[2024-08-28] MEDS: VITAMIN B COMPLEX TAB PO SCH (15:11)
[2024-08-28] MEDS: ISOSORBIDE MONO EXTENDED REL 30 MG TABCR PO SCH (15:12)
[2024-08-28] MEDS: FENOFIBRATE NANOCRYSTALLIZED 145 MG TABLET PO SCH (15:12)
[2024-08-28] MEDS: CHOLECALCIFEROL 125 MCG (5,000 UNITS) TAB PO SCH (15:13)
[2024-08-28] MEDS: Nursing to Pharmacy Communication SCH (20:21)
[2024-08-29 04:31] LABS: Hematocrit (blood only) 42.9 % (42.0-52.0); Hemoglobin 14.7 g/dl (14.0-18.0); Mean Corpuscular Hemoglobin 31.6 pg (25.0-34.0); Mean Corpuscular Volume 92.3 fL (80.0-100.0); Platelet Count 221 K/uL (130-400); RDW Standard Deviation 42.7 fL (36.4-46.3); Red Blood Count 4.65 M/uL (4.70-6.10); White Blood Count 7.73 K/ul (4.8-10.8)
[2024-08-29 04:47] LABS: Anion Gap 7.0 (3-11); Blood Urea Nitrogen 17.0 mg/dl (6-23); Calcium 9.1 mg/dl (8.6-10.3); Carbon Dioxide 27.0 mmol/L (21-32); Chloride 104.0 mmol/L (98-107); Creatinine Clr Calc Pharmacy 83.2 ml/min; Glucose 123.0 mg/dl (70-99(Fasting)); Magnesium 1.9 mg/dl (1.7-2.4); Potassium 4.2 mmol/L (3.5-5.1); Sodium 138.0 mmol/L (136-145)
[2024-08-29 04:53] LABS: ANTI-Xa, UFH(UnfractionatedHep < 0.10 IU/ml (0.3-0.7)
[2024-08-29] MEDS: CLOPIDOGREL BISULFATE 75 MG TAB PO SCH (10:31)
--- NOTE | 2024-08-29 10:41 | Cardiology Progress Note ---
Date of Service August 29, 2024 Assessment & Plan (1) CAD (coronary atherosclerotic disease): Plan: -Culprit lesion identified in the mid LAD. -3.5x15 mm Misbah YADIRA deployed at that location. -Residual disease included a 20% LM, 90% small D2, 30% proximal OM1, and 30% mid RCA. -Dual antiplatelet therapy for at least 1 year. -Stable for hospital discharge. -Follow-up with his primary model making supervisor, Dr. Greg Phipps. (2) Acute on chronic diastolic CHF (congestive heart failure): Plan: -Mild hypervolemia noted on presentation. -Responded to a single dose of intravenous furosemide. -Currently euvolemic. (3) Aortic stenosis: Plan: -Moderate in degree on current echocardiogram. -Cardiac catheterization confirms moderate aortic stenosis (mean gradient of 31 mmHg). (4) Ascending aorta dilatation: Plan: -Measures 4.1 cm in diameter on current study. -Yearly surveillance echocardiograms per Dr. Phipps. -According to the patient's , ascending aorta has remained stable. Admission and Anticipated Discharge Date Admission Date: August 27, 2024 Subjective The patient is resting comfortably in bed without complaints of chest pain or dyspnea. His is at the bedside. He is anxious for hospital discharge. Physical Exam Physical Exam: In general this is a well-developed well-nourished white male in no acute distress. HEENT exam is negative. Neck reveals mildly delayed carotid upstrokes without bruits or transmitted murmurs. Jugular venous pressure is flat at 90. There is no thyromegaly. Cardiovascular exam reveals a regular rhythm with a 2/6 crescendo decrescendo systolic murmur heard loudest at the base. No heart sounds are audible at the apex. Lungs are clear without rales, rhonchi, or wheezes. Abdomen is soft without bruits. Extremities reveal a dry dressing across the right radial artery. No bruits identified at the right wrist. There is no peripheral edema. Results & Data Vital Signs (Past 12 Hours) Vital Signs Temp Pulse Pulse Resp BP Pulse Ox O2 Del Method 08/29/24 08:00 08/29/24 08:00 58 L 08/29/24 07:35 36.7 C 64 18 118/74 94 Room Air 08/29/24 02:44 36.6 C 73 18 116/74 95 Room Air 08/29/24 00:00 08/28/24 23:11 36.6 C 61 18 131/75 94 Room Air O2 Del Method 08/29/24 08:00 Room Air 08/29/24 08:00 08/29/24 07:35 08/29/24 02:44 08/29/24 00:00 Room Air 08/28/24 23:11 PG Care Time/CCT Total # of Minutes Spent Total Time Spent with Patient: Total time spent is greater than 50% in coordination of care (as documented) at patient's floor/unit and/or counseling patient: Coding Level of Care Code 51136 SUB INP/OBS CARE 3/50MIN Diagnoses CAD (coronary atherosclerotic disease) I25.10 Acute on chronic diastolic CHF (congestive heart failure) I50.33 Aortic stenosis I35.0 Ascending aorta dilatation I77.810
[2024-08-29 10:42] VITALS: BP 141/78; PULSE 65; RESP 16; TEMP 97.5; O2SAT 95
--- NOTE | 2024-08-29 16:13 | Discharge Summary ---
Discharge Summary Date of Service August 29, 2024 Principal Dx & Hospital Course #1 = Principal Diagnosis (1) CHF (congestive heart failure): Assessment and plan below following discussion of case with ED provider and reviewing patient history/pertinent normal/abnormal diagnostic test results. Unstable angina, history nonocclusive CAD CAD s/p LAD YADIRA -s/p cath which revealed 70% mid LAD. Small D3 80% ostial -LAD stent placed Plan: -post stent placement monitoring for 24 hours on telementry -Strict I/Os, daily weights, CHF education -f/u echo results -likely will need antianginal meds for ostial lesion -Continue aspirin, beta-matthew and statin Rx for CAD prediabetes, patient cannot recall recent hemoglobin A1c BPH, stable on Flomax hypertension, stable hyperlipidemia, on statin Rx NAFLD I spent a total of 25 minutes in direct patient care, including [id number] time with the patient and/or family, reviewing medical records, ordering and reviewing diagnostic tests, and coordinating care with other healthcare providers. This time includes: history taking, physical examination, medical decision making, counseling, ECG interpretation, imaging interpretation, lab interpretation, orders, and education, excluding time spent in the performance of separately billed services. Notes For Next Care Provider 59 yo male with Medical history significant for CAD, hypertension, hyperlipidemia, NAFLD, prediabetes, BPH presenting for substernal chest pain. Found to have NSTEMi, admitted to medicine. On medicine, cardiology consulted, took patient to laboratory engineer, LAD stent placed without complications. Monitored overnight, asymptomatic. on 08/29/2024 patient medically stable for discharge home. To do: [ ] f/u with cardiology [ ] DAPT for at least 12 months Medication Changes From Visit -see below Admission HPI Per Admitting Provider History obtained from patient, family, and records. Medical history significant for CAD, hypertension, hyperlipidemia, NAFLD, prediabetes, BPH. Patient for a few weeks now will experience intermittent chest discomfort described as burning with occasional radiation to the left arm. Some SOB with exertion. Denies cough symptoms. Denies fluid retention Different from chest pain/fatigue symptoms which prompted outpatient diagnostic cardiac catheterization at a hospital in [place] in 2021 which showed nonobstructive CAD as per patient. Patient compliant with home medications. No unusual stress. Patient consulted ER for worsening symptoms. Patient currently comfortable. Medical History as above Surgical History : Hernia repair, septoplasty, carpal tunnel surgery Family History : Heart disease Personal/Social history : Non-smoker, occasional EtOH intake, pavement work employment Discharge Exam Gen: A&O 3 NAD HEENT: NCAT, EOMI, not icteric. External ears normal. No rhinorrhea. Moist mucous membranes. Neck: Supple, full range of motion, no observable masses, No meningeal sign. Lungs: No Respiratory distress. CV: RRR, no edema. Abdomen: Soft, nondistended, No rebound tenderness. MSK: No joint swelling, no redness. Skin: No rashes, petechiae, lesions. Normal color per patient. Neuro: Normal Gait, Grossly intact. Psych: Appropriate for situation. Updated Medication List Medication Instructions Recorded Confirmed Type ascorbic acid (vitamin C) 1,000 mg 1,000 mg PO BID 08/27/24 08/27/24 History tablet (Vitamin C) aspirin 81 mg tablet,delayed 81 mg PO DAILY 08/27/24 08/27/24 History release atorvastatin 80 mg tablet 80 mg PO HS 08/27/24 08/27/24 History cholecalciferol (vitamin D3) 125 125 mcg PO DAILY 08/27/24 08/27/24 History mcg (5,000 unit) tablet (Vitamin D3) fenofibrate nanocrystallized 145 145 mg PO DAILY 08/27/24 08/27/24 History mg tablet isosorbide mononitrate 30 mg 30 mg PO DAILY 08/27/24 08/27/24 History tablet,extended release 24 hr metoprolol succinate 25 mg 12.5 mg PO HS 08/27/24 08/27/24 History tablet,extended release 24 hr omega 0-yxx-dhc-fish oil 1,000 mg 1 cap PO BID 08/27/24 08/27/24 History (120 mg-180 mg) capsule (Fish Oil) tamsulosin 0.4 mg capsule 0.4 mg PO DAILY 08/27/24 08/27/24 History vitamin B complex 1 tab PO DAILY 08/27/24 08/27/24 History clopidogrel 75 mg tablet 75 mg PO QAM 30 days #30 tabs 08/29/24 Rx Hospital Stay Data Consultations 08/27/24 19:18 ED Decision to Admit Stat 08/27/24 20:22 Consult Cardiology Routine Procedures Performed Operation Date: 08/28/24 11:00 Actual Procedures p Cineradiography w/Routine Exam - Harshad Sorensen MD p Cath, Left with Cors and Vent - Harshad Sorensen MD p Drug Eluting Stent SGl Vessel - Harshad Sorensen MD s IVUS Coronary each ADDL Vessel - Harshad Sorensen MD Diagnostic Imagining Performed 08/28/24 10:44 CL Cath Imgs for PACS use only Routine 08/28/24 12:52 CL IVUS Coronary Single Vessel Routine 08/28/24 13:41 CL IVUS Coronary Single Vessel Routine Pending Results Patient Have Any Pending Studies at Discharge: No Discharge Instructions Given to Patient (Per Discharging Provider) 1. Please take all medications as prescribed. 2. Please stay hydrated, avoid strenuous activity for 2 weeks, and stopping using tobacco products. 3. Please follow up with cardiology and PCP. Total Time Total Time Spent Total Time Spent (In Minutes): I spent a total of 35 minutes in direct patient care, including [id number] time with the patient and/or family, reviewing medical records, ordering and reviewing diagnostic tests, and coordinating care with other healthcare providers. This time includes: history taking, physical examination, medical decision making, counseling, ECG interpretation, imaging interpretation, lab interpretation, orders, and education, excluding time spent in the performance of separately billed services.
== END 2024-08-29 13:43 | disposition home or self-care (01) ==
LOC: ED 15:43 → INTOOBSV 19:44 → 2S 19:44